=== PATIENT | male | born 1985 | race Caucasian/White ===

== ENCOUNTER 2020-03-15 16:55 | Emergency (ER) | payer MEDICAID ==
--- NOTE | 2020-03-15 17:03 | ERPHSYRPT ---
- History of Present Illness Time Seen by Provider: 03/15/20 17:03 Source: patient Exam Limitations: no limitations Physician History: This is a 35-year-old right-handed white male who presents with left shoulder pain following an injury. Patient fell off a ladder onto his left shoulder. Patient is having pain when attempting to abduct his left shoulder. Patient denies head injury, he denies neck injury. He has no other pain complaints. Occurred: just prior to arrival Reason for Fall: slipped Injuries/Pain Location: upper extremity (Shoulder on left) Loss of Consciousness: no loss of consciousness Quality: aching Severity of Pain-Max: mild Severity of Pain-Current: mild Modifying Factors: Improves With: movement (Abduct) Associated Symptoms (Fall): denies symptoms Allergies/Adverse Reactions: Penicillins Allergy (Verified 03/15/20 17:36) Travel Risk - International Travel Have you traveled outside of the country in past 3 weeks: No - Coronavirus Screening Are you exhibiting any of the following symptoms?: No Close contact with a COVID-19 positive Pt in past 14-21 Days: No - Review of Systems Constitutional: No Symptoms Eyes: No Symptoms Ears, Nose, & Throat: No Symptoms Respiratory: No Symptoms Cardiac: No Symptoms Abdominal/Gastrointestinal: No Symptoms Genitourinary Symptoms: No Symptoms Musculoskeletal: Fall, Injury (Left shoulder) Skin: No Symptoms Neurological: No Symptoms Psychological: No Symptoms Endocrine: No Symptoms Hematologic/Lymphatic: No Symptoms Immunological/Allergic: No Symptoms All Other Systems: Reviewed and Negative - Past Medical History Pertinent Past Medical History: No Neurological History: No Pertinent History ENT History: No Pertinent History Cardiac History: No Pertinent History Respiratory History: No Pertinent History Endocrine Medical History: No Pertinent History Musculoskeletal History: No Pertinent History GI Medical History: No Pertinent History History: No Pertinent History Psycho-Social History: No Pertinent History Male Reproductive Disorders: No Pertinent History - Past Surgical History Past Surgical History: No Neuro Surgical History: No Pertinent History Cardiac: No Pertinent History Respiratory: No Pertinent History Gastrointestinal: No Pertinent History Genitourinary: No Pertinent History Musculoskeletal: No Pertinent History Male Surgical History: No Pertinent History - Nursing Vital Signs Nursing Vital Signs: Initial Vital Signs Temperature 97.2 F 03/15/20 17:22 Pulse Rate 100 H 03/15/20 17:22 Blood Pressure 136/81 03/15/20 17:22 O2 Sat by Pulse Oximetry 98 03/15/20 17:22 Pain Scale Pain Intensity 3 - [place] Coma Score Best Eye Response (Linda): (4) open spontaneously Best Verbal Response (Linda): (5) oriented Best Motor Response (Linda): (6) obeys commands [place] Total: 15 - Physical Exam General Appearance: no apparent distress, alert, anxiety Head Injury: no evidence of injury Eye Exam: PERRL/EOMI, eyes nml inspection ENT Exam: airway nml, nml ext.inspection, No evidence of ENT injury Neck Exam: supple, trachea midline, full range of motion, normal alignment Respiratory/Chest Exam: normal breath sounds, No chest tenderness, No respiratory distress, No ecchymosis, No crepitus Cardiovascular Exam: normal heart sounds, regular rate/rhythm, normal peripheral pulses Gastrointestinal Exam: soft, normal bowel sounds, No tenderness Back Exam: normal inspection, normal range of motion, No CVA tenderness, No vertebral tenderness Extremity Exam: normal inspection, pelvis stable, limited range of motion (Patient has difficulty abducting on the left shoulder. He can do it but it hurts to do so.) Neurologic Exam: alert, oriented x 3, cooperative, hospital receptionist II-XII nml as tested, normal mood/affect, nml cerebellar function, nml station & gait, sensation nml Skin Exam: normal color, warm, dry SpO2 Interpretation: normal O2 Delivery: Room Air - Course Nursing assessment & vital signs reviewed: Yes Ordered Tests: Active Orders 24 hr Category Date Time Status CLAVICLE Stat Exams 03/15/20 17:26 Taken SHOULDER Stat Exams 03/15/20 17:26 Taken - Progress Progress Note: 03/15/20 18:42 I evaluated the x-rays of the patient's left clavicle and left shoulder. I do not see any acute fracture or dislocation. I will have the radiologist over read prior to his discharge tonight. 03/15/20 19:03 Dr. Aquino, the radiologist, over read the x-rays of the left clavicle and shoulder at my request. He agrees that there is no acute fracture or dislocation. Counseled pt/family regarding: diagnosis, need for follow-up, rad results - Departure Departure Disposition: Home Clinical Impression: Contusion Condition: Stable Critical Care Time: No Referrals: MELODY - LARISA KOVACS NP [NON-STAFF PHY W/O PRIVILEGES] - Additional Instructions: Wear sling for comfort. Follow-up with primary care physician or [facility] orthopedic clinic for persistent symptoms Prescriptions: Carisoprodol 350 mg [Soma 350 mg] 350 mg PO Q8H PRN PRN #10 tablet PRN Reason: Muscle Spasms Naproxen 500 mg [Naprosyn 500 MG] 500 mg PO BID #10 tablet
[2020-03-15 18:16] VITALS: PULSE 86
[2020-03-15] MEDS ORDERED: OXYCODONE-ACETAMINOPHEN 10-325 PO STA (19:09)
[2020-03-15] MEDS ORDERED: OXYCODONE-ACETAMINOPHEN 10-325 ONE (19:15)
[2020-03-15 19:40] VITALS: BP 130/73; O2SAT 98
--- NOTE | 2020-03-16 08:38 | XRAY ---
Indication: Pain following 13 feet fall. Comparison: None 3 view left shoulder obtained. No bony, articular, or soft tissue abnormalities.
--- NOTE | 2020-03-16 08:47 | XRAY ---
Indication: Pain following 13 feet fall. Comparison: None 2 view left clavicle obtained. No bony, articular, or soft tissue abnormalities.
== END 2020-03-15 19:40 | disposition home or self-care (01) ==
LOC: ED 16:55
DX: S40.012A Contusion of left shoulder, initial encounter (principal); W11.XXXA Fall on and from ladder, initial encounter; Y93.9 Activity, unspecified; Y92.9 Unspecified place or not applicable; M25.512 Pain in left shoulder
CPT/HCPCS: 73000; 73030; 99283; A9270-GY

== ENCOUNTER 2021-03-04 13:40 | Emergency (ER) | payer BC ==
[2021-03-04] MEDS ORDERED: XYLOCAINE 1% HCL 20 ML MDV ONE (14:56)
[2021-03-04] MEDS ORDERED: Xylocaine 1% Vial 30 ML PF IJ ONE (15:02)
[2021-03-04] MEDS ORDERED: Adacel Vial IM ONE ×2 (15:07→15:39)
[2021-03-04] MEDS ORDERED: BACTRIM DS TABLET PO STA (15:08)
--- NOTE | 2021-03-04 15:20 | ERPHSYRPT ---
- History of Present Illness Time Seen by Provider: 03/04/21 13:41 Source: patient Exam Limitations: no limitations Physician History: 36 years old left-handed dominant presented in the ER with chief complaint of fishhook in the left hand thumb and fourth digit while he was catching fish earlier. Complaining of moderate to severe sharp pain. Unsure about tetanus status. Timing/Duration: hour(s) (1), constant, sudden, worse Quality: painful Severity: severe Location: extremities Possible Causes: other Allergies/Adverse Reactions: Penicillins Allergy (Verified 03/04/21 14:55) - Review of Systems Constitutional: No Symptoms Eyes: No Symptoms Respiratory: No Symptoms Cardiac: No Symptoms Abdominal/Gastrointestinal: No Symptoms Musculoskeletal: Injury Skin: Skin Lesions Neurological: No Symptoms Psychological: No Symptoms Endocrine: No Symptoms Hematologic/Lymphatic: No Symptoms Immunological/Allergic: No Symptoms - Past Medical History Pertinent Past Medical History: No Neurological History: No Pertinent History ENT History: No Pertinent History Cardiac History: No Pertinent History Respiratory History: No Pertinent History Endocrine Medical History: No Pertinent History Musculoskeletal History: No Pertinent History GI Medical History: No Pertinent History History: No Pertinent History Psycho-Social History: No Pertinent History Male Reproductive Disorders: No Pertinent History - Past Surgical History Past Surgical History: No Neuro Surgical History: No Pertinent History Cardiac: No Pertinent History Respiratory: No Pertinent History Gastrointestinal: No Pertinent History Genitourinary: No Pertinent History Musculoskeletal: No Pertinent History Male Surgical History: No Pertinent History - Social History Smoking Status: Current every day smoker Exposure to second hand smoke: Yes Patient Lives Alone: No - Physical Exam General Appearance: no apparent distress Eye Exam: eyes nml inspection Neck Exam: normal inspection, full range of motion Respiratory Exam: normal breath sounds, lungs clear Cardiovascular Exam: regular rate/rhythm, normal heart sounds Extremity Exam: other (Two fishhook is embedded in the left thumb distal phalanx just distal to interphalangeal joint. Embedded barbs. Also embedded chevy in left fourth digit pulp. No active bleeding.) Neurologic Exam: alert, oriented x 3, cooperative Skin Exam: normal color SpO2 Interpretation: normal SpO2: 95 O2 Delivery: Room Air Ordered Tests: Medication Summary Discontinued Medications Generic Name Dose Route Start Last Admin Trade Name Freq PRN Reason Stop Dose Admin Diphtheria/Tetanus/Acell Pertussis 0.5 ml 03/04/21 15:07 Adacel Vial IM 03/04/21 15:08 .ONCE ONE Diphtheria/Tetanus/Acell Pertussis Confirm 03/04/21 15:39 Adacel Vial Administered 03/04/21 15:40 Dose 0.5 ml IM .STK-MED ONE Lidocaine HCl Confirm 03/04/21 14:56 Xylocaine 1% Hcl 20 Ml Mdv Administered 03/04/21 14:57 Dose 5 ml .ROUTE .STK-MED ONE Lidocaine HCl 5 ml 03/04/21 15:02 Xylocaine 1% Vial 30 Ml Pf IJ 03/04/21 15:03 STAT ONE Trimethoprim/Sulfamethoxazole 1 tab 03/04/21 15:08 Bactrim Ds Tablet PO 03/04/21 15:09 STAT STA Trimethoprim/Sulfamethoxazole Confirm 03/04/21 15:39 Bactrim Ds Tablet Administered 03/04/21 15:40 Dose 1 tab PO .STK-MED ONE - Progress Progress: improved Progress Note: 03/04/21 15:18 Procedure note. Hand is prepared and sterile fashion. Lidocaine without epi injected 4 cc in total IN both digits proximal to hook insertion site. Base of fishhook is cut and pushed forward and removed in 1 pieces all three barbs. Tetanus is updated. We'll start him on prophylactic antibiotics. Recommended Tylenol ibuprofen as needed. Discussed signs symptoms of infection needing return to ER which he seems understanding. Stable for discharge. Counseled pt/family regarding: diagnosis, need for follow-up - Departure Departure Disposition: Home Clinical Impression: Fish hook injury of finger of left hand Qualifiers: Encounter type: initial encounter Qualified Code(s): S69.92XA - Unspecified injury of left wrist, hand and finger(s), initial encounter Condition: Stable Critical Care Time: No Referrals: DOCTOR,NO FAMILY [Primary Care Provider] - CATHERINE BORJAS [ACTIVE STAFF] - Follow Up with PCP/3 days Instructions: Wound Infection Additional Instructions: Use Tylenol/ibuprofen as needed. Keep it clean. Follow-up with primary care physician for reevaluation. Return to ER for increasing pain, redness, discharge, difficulty movements of finger or if develop fever chills etc. Prescriptions: Smz/Tmp Ds Tablet [Bactrim Ds Tablet] 1 udtab PO BID #10 tablet
[2021-03-04] MEDS ORDERED: BACTRIM DS TABLET PO ONE (15:39)
[2021-03-04 15:49] VITALS: O2SAT 95
[2021-03-04 15:58] VITALS: BP 120/78; PULSE 86
== END 2021-03-04 16:00 | disposition home or self-care (01) ==
LOC: ED 13:40
DX: S69.92XA Unspecified injury of left wrist, hand and finger(s), initial encounter (principal)
CPT/HCPCS: 90471; 90715; 99284; J2001; A9270-GY

== ENCOUNTER 2022-04-07 16:34 | Emergency (ER) | payer BC ==
--- NOTE | 2022-04-07 16:51 | ERPHSYRPT ---
- History of Present Illness Time Seen by Provider: 04/07/22 16:51 Source: patient, family Exam Limitations: no limitations Patient Subjective Stated Complaint: 2nd migraine for the day, first one lasted 5 hours and then this one came on at approx 1530 Triage Nursing Assessment: Pt brought to the ER by his girlfriend, hypertensive, rates pain 04/07, hx of migraines but has never had one this bad per pt, [place] but denies vomiting, pulses normal, skin n/w/d, walked into the ER with his girlfriend holding his arm and he had sun glasses on with his eyes shut Physician History: This is a 37-year-old white male patient who has a history of migraine headaches and states that its been a while since he has had a migraine but yesterday he had a migraine but then resolved on its own. Today he has had 2 migraines. The first 1 lasted 5 hours. He took 4 extra strength migraine headache tablets which took the edge off but then at 345 this afternoon the pain came back stronger. Patient presents with the worst headache he has ever had. He has light sensitivity and nausea but no vomiting present. He has not had a fever. He has had no vomiting or diarrhea. He has no chest pain. He has no shortness of breath and he has no abdominal pain. Timing/Duration: yesterday Quality: throbbing Head Pain Location: global Severity of Pain-Max: moderate Severity of Pain-Current: moderate Recent Head Trauma: no recent headache/trauma Modifying Factors: Improves With: exposure to light Associated Symptoms: sensitive to light, other (Nausea but no vomiting) Previous symptoms: other (Patient has had migraine headaches in the past but this is the worst headache he has ever had.) Allergies/Adverse Reactions: Penicillins Allergy (Verified 04/07/22 16:49) Home Medications: No Reportable Medications [No Reported Medications] 04/07/22 [History] Hx Tetanus, Diphtheria Vaccination/Date Given: No Hx Influenza Vaccination/Date Given: No Hx Pneumococcal Vaccination/Date Given: No Travel Risk - International Travel Have you traveled outside of the country in past 3 weeks: No - Coronavirus Screening Are you exhibiting any of the following symptoms?: No Close contact with a COVID-19 positive Pt in past 14-21 Days: No - Vaccine Status Have you recieved a Covid-19 vaccination: No - Review of Systems Constitutional: No Symptoms Eyes: No Symptoms Ears, Nose, & Throat: No Symptoms Respiratory: No Symptoms Cardiac: No Symptoms Abdominal/Gastrointestinal: No Symptoms Genitourinary Symptoms: No Symptoms Musculoskeletal: No Symptoms Skin: No Symptoms Neurological: Headache Psychological: No Symptoms Endocrine: No Symptoms Hematologic/Lymphatic: No Symptoms Immunological/Allergic: No Symptoms All Other Systems: Reviewed and Negative - Past Medical History Pertinent Past Medical History: Yes Neurological History: Migraines ENT History: No Pertinent History Cardiac History: No Pertinent History Respiratory History: No Pertinent History Endocrine Medical History: No Pertinent History Musculoskeletal History: No Pertinent History GI Medical History: No Pertinent History History: No Pertinent History Psycho-Social History: No Pertinent History Male Reproductive Disorders: No Pertinent History - Past Surgical History Past Surgical History: No Neuro Surgical History: No Pertinent History Cardiac: No Pertinent History Respiratory: No Pertinent History Gastrointestinal: No Pertinent History Genitourinary: No Pertinent History Musculoskeletal: No Pertinent History Male Surgical History: No Pertinent History - Social History Smoking Status: Current every day smoker Exposure to second hand smoke: Yes Drug Use: none Patient Lives Alone: No - Nursing Vital Signs Nursing Vital Signs: Initial Vital Signs Temperature 98.2 F 04/07/22 16:40 Pulse Rate 77 04/07/22 16:40 Blood Pressure 166/95 04/07/22 16:40 O2 Sat by Pulse Oximetry 100 04/07/22 16:40 Pain Scale Pain Intensity 0 - Physical Exam General Appearance: mild distress, alert, anxiety Eye Exam: PERRL/EOMI, eyes nml inspection Ears, Nose, Throat Exam: normal ENT inspection, moist mucous membranes Neck Exam: normal inspection, non-tender, supple, full range of motion Respiratory Exam: airway intact, No chest tenderness, No respiratory distress Gastrointestinal/Abdominal Exam: No tenderness Back Exam: normal inspection, normal range of motion, No CVA tenderness, No vertebral tenderness Extremity Exam: normal inspection, normal range of motion, pelvis stable Mental Status Exam: alert, oriented x 3, cooperative rn primary care Exam: normal hearing, normal speech, PERRL, tongue midline Coordination/Gait Exam: normal gait Skin Exam: normal color, warm, dry Lymphatic Exam: No adenopathy SpO2 Interpretation: normal SpO2: 100 O2 Delivery: Room Air - Course Nursing assessment & vital signs reviewed: Yes Ordered Tests: Active Orders 24 hr Category Date Time Status IV Insertion STAT Care 04/07/22 16:53 Active Pulse Oximetry (ED) STAT Care 04/07/22 16:53 Active HEAD WITHOUT CONTRAST [CT] Stat Exams 04/07/22 16:53 Taken Medication Summary Discontinued Medications Generic Name Dose Route Start Last Admin Trade Name Laurie PRN Reason Stop Dose Admin Methylprednisolone Sodium 0 mg 04/07/22 16:53 04/07/22 16:59 Succinate 125 mg/ Sterile IV 04/07/22 16:54 125 mg Water 2 ml STAT ONE Administration Hydromorphone HCl 1 mg 04/07/22 16:53 04/07/22 16:59 Hydromorphone 1 Mg/1ml Inj 1 Mg/Ml Syringe IV 04/07/22 16:54 1 mg STAT ONE Administration Hydromorphone HCl Confirm 04/07/22 16:56 Hydromorphone 1 Mg/1ml Inj 1 Mg/Ml Syringe Administered 04/07/22 16:57 Dose 1 mg .ROUTE .STK-MED ONE Methylprednisolone Sodium Succinate Confirm 04/07/22 16:56 Methylprednis Sod Succ 125 Mg/2 Ml Vial Administered 04/07/22 16:57 Dose 125 mg .ROUTE .STK-MED ONE Prochlorperazine Edisylate 5 mg 04/07/22 16:53 04/07/22 16:59 Prochlorperazine Edisylate 10 Mg/2 Ml Vial IV 04/07/22 16:54 5 mg STAT ONE Administration Prochlorperazine Edisylate Confirm 04/07/22 16:56 Prochlorperazine Edisylate 10 Mg/2 Ml Vial Administered 04/07/22 16:57 Dose 10 mg .ROUTE .STK-MED ONE Sterile Water Confirm 04/07/22 16:56 Water For Injection,Sterile 10 Ml Vial Administered 04/07/22 16:57 Dose 10 ml IJ .STK-MED ONE - Progress Progress: improved Air Movement: good Progress Note: 04/07/22 18:32 CT scan of head without contrast shows no acute intracranial abnormality. Patient states that he is pain-free from his headache. Blood Culture(s) Obtained: No Antibiotics given: No Counseled pt/family regarding: diagnosis, need for follow-up, rad results - Departure Departure Disposition: Home Clinical Impression: Migraine headache Condition: Stable Critical Care Time: No Referrals: DOCTOR,NO FAMILY [Primary Care Provider] - Follow up/PCP as directed Additional Instructions: Follow-up with your primary care physician for further evaluation and management including evaluation by neurologist if indicated.
[2022-04-07] MEDS ORDERED: Compazine 10 MG/2 ML IV ONE (16:53)
[2022-04-07] MEDS ORDERED: Hydromorphone 1 mg/ml Injection IV ONE (16:53)
[2022-04-07] MEDS ORDERED: solu-MEDROL 125 MG, Sterile H2O 10 ml 2 ML IV ONE ×2 (16:53)
[2022-04-07] MEDS ORDERED: Compazine 10 MG/2 ML ONE (16:56)
[2022-04-07] MEDS ORDERED: Hydromorphone 1 mg/ml Injection ONE (16:56)
[2022-04-07] MEDS ORDERED: solu-MEDROL ONE (16:56)
[2022-04-07] MEDS ORDERED: Sterile H2O 10 ml IJ ONE (16:56)
[2022-04-07 18:26] VITALS: PULSE 68
[2022-04-07 18:33] VITALS: O2SAT 100
[2022-04-07 18:34] VITALS: BP 120/63
--- NOTE | 2022-04-08 10:08 | XRAY ---
Indication: Severe migraine. Nausea. Multiple contiguous axial images obtained through the head without contrast. Comparison: None Normal appearing brain parenchyma, ventricles, and bony calvarium. Visualized paranasal sinuses and mastoid air cells are clear. Impression: Normal CT head without contrast exam.
== END 2022-04-07 19:00 | disposition home or self-care (01) ==
LOC: ED 16:34
DX: G43.909 Migraine, unspecified, not intractable, without status migrainosus (principal); H53.143 Visual discomfort, bilateral; R11.0 Nausea; Z72.0 Tobacco use; Z28.310 Unvaccinated for COVID-19
CPT/HCPCS: 36000; 70450; 94760; 96374; 96375; 99284; J1170; J2930